=== PATIENT | male | born 1960 | race Caucasian/White ===

== ENCOUNTER 2021-05-02 04:13 | Observation (INO) ==
[2021-05-02 09:17] LABS: ABS Eosinophils 0.1 10^3/ul (0-0.6); ABS Lymphocytes 1.7 10^3/ul (1.0-4.8); ABS Neutrophils 6.4 10^3/ul (1.5-7.7); Eosinophil % 0.6 %; Hematocrit 46 % (42-52); Hemoglobin 15.9 g/dL (14.0-18.0); Lymphocyte % 18.5 %; Mean Corpuscular HGB Conc 35 g/dL (31-36); Mean Corpuscular Hemoglobin 31 pg (27-31); Mean Corpuscular Volume 90 fL (80-94); Platelet Count 244 10^3/uL (150-450); Red Cell Distribution Width 13 % (10-15); White Blood Count 9.1 10^3/uL (3.5-10.8)
[2021-05-02 09:36] LABS: ALT 54 U/L (7-52); AST 32 U/L (13-39); Albumin 4.5 g/dL (3.2-5.2); Albumin/Globulin Ratio 1.2 (1-3); Alkaline Phosphatase 69 U/L (35-149); Anion Gap 5 mmol/L (2-11); Blood Urea Nitrogen 15 mg/dL (6-24); C Reactive Protein 33.35 mg/L (<8.01); CO2 Carbon Dioxide 31 mmol/L (22-32); Calcium 9.8 mg/dL (8.6-10.3); Chloride 102 mmol/L (101-111); EGFR African American 97.3 (>60); EGFR Non-African American 80.5 (>60); Globulin 3.8 g/dL (2-4); Glucose 101 mg/dL (70-100); Potassium 4.1 mmol/L (3.5-5.0); Sodium 138 mmol/L (135-145); Total Protein 8.3 g/dL (6.4-8.9)
[2021-05-02 09:42] LABS: Troponin I 0.05 ng/mL (<0.03)
[2021-05-02] MEDS ORDERED: Iohexol 350 (CONTRAST) 500 ML MDV IV ONE (11:32)
[2021-05-02 12:04] LABS: Rheumatoid Factor < 10 IU/mL (<15)
[2021-05-02 12:24] LABS: Troponin I 0.04 ng/mL (<0.03)
[2021-05-02 13:04] LABS: Rapid COVID-19 Molecular Undetected (Undetected)
[2021-05-02 13:46] LABS: Erythrocyte Sed Rate 21 mm/Hr (0-19)
[2021-05-02 15:40] LABS: Troponin I 0.04 ng/mL (<0.03)
[2021-05-03 06:52] LABS: HDL Cholesterol 31.2 mg/dL
[2021-05-03 08:46] VITALS: BP 133/91
== END 2021-05-03 11:20 | disposition home or self-care (01) ==
LOC: MEDTELE 04:13 → ED 04:13 → MEDTELE 14:03
PROVIDERS: ADMIT Internal Medicine; ATTEND Internal Medicine